=== PATIENT | female | born 1955 | race Caucasian/White ===

== ENCOUNTER 2016-06-24 19:43 | Emergency (ER) | payer MEDICARE ==
[2016-06-24 19:58] VITALS: BP 174/86
[2016-06-24] MEDS ORDERED: predniSONE 20 MG TABLET PO ONE (20:10)
[2016-06-24] MEDS ORDERED: predniSONE 20 MG TABLET ONE (20:11)
--- NOTE | 2016-06-24 20:21 | ERNOTE ---
Integumentary HPI - General Presenting Symptoms: rash Time Seen by Provider: 06/24/16 20:02 Source: patient Exam Limitations: no limitations - Immun/Allergies/Home Medications Immunizations: IMMUNIZATION HX Immunizations Up to Date Yes History of Influenza Vaccine No Hx Pneumococcal Vaccination No Allergies/Adverse Reactions: Allergies Allergy/AdvReac Type Severity Reaction Status Date / Time prednisone Allergy Mild Other Verified 06/24/16 19:58 Home Medications: HOME MEDICATIONS Ibuprofen [Motrin] 800 mg PO TID PRN 02/24/16 [Last Taken Unknown] Multivitamins [Multivitamin Jeff] 1 cap PO DAILY 02/24/16 [Last Taken Unknown] Naproxen Sodium [Aleve] 220 mg PO BID PRN 02/24/16 [Last Taken Unknown] Omeprazole 40 mg PO DAILY PRN 02/24/16 [Last Taken Unknown] hydrOXYzine HCL [Atarax] 25 mg PO Q6H PRN 02/24/16 [Last Taken Unknown] valACYclovir HCL [Valtrex] 500 mg PO DAILY PRN 02/24/16 [Last Taken Unknown] predniSONE [Prednisone] 2 tab PO DAILY #8 tab 06/24/16 [Last Taken Unknown] - History of Present Illness Narrative: Patient started with a rash yesterday. It is mainly in her face and chest. She gets poison diana frequently and her symptoms are similar. She denies any other symptoms. Earlier she went to a clinic in [place] but they would not give her prednisone as her face gets flushed when she takes it. She denies any other symptoms with the prednisone Date (Duration): 06/23/16 Location: Reports: facial Quality: Reports: itching Exposure: Reports: poison diana/oak Modifying Factors - (Improves): Reports: antihistamine, topical steroids Review of Systems - Review of Systems Constitutional: Absent: recent illness, fever ENT: Absent: ear pain, ear discharge, nose congestion, sore throat Respiratory: Absent: shortness of breath, cough Gastrointestinal/Abdominal: Absent: nausea, vomiting, abdominal pain Genitourinary: Present: no symptoms reported Musculoskeletal: Present: no symptoms reported Skin: Present: See HPI Neurological: Absent: weakness, numbness - Patient's Past Medical History Patient History - Medical: No pertinent hx Patient History - Cardiac/Respiratory: No pertinent hx Patient History - Cancer: No Hx of Cancer Patient History - Surgical Procedures: No surgical history Patient History - Other: None LMP (females 10-50): Menopausal - Social History Living Situations: home Psych History: No pertinent hx - Immunizations Immunizations Up to Date: Yes Hx Pneumococcal Vaccination: No History of Influenza Vaccine: No Physical Exam - Physical Exam General Appearance: Present: wd/wn, alert, no apparent distress, obese Ears, Nose, Throat: Present: normal pharynx Respiratory: Present: no respiratory distress, normal breath sounds, no accessory muscle use, lungs clear Cardiovascular/Chest: Present: regular rate, rhythm, no murmur Neurological Exam: Present: alert, oriented, normal mood/affect Skin Exam: Present: normal color, warm/dry, skin rash - lower face and neck: erythema, one area weeping ED Progress - Vital Signs Patient's Vital Signs:: I have reviewed the patient's vital signs. Vital Signs: Vital Signs 06/24/16 19:51 Temperature 37.1 C Pulse Rate 84 Respiratory 16 Rate Blood Pressure 174/86 O2 Sat by Pulse 98 Oximetry - Progress/Reassessment Chief Complaint: Rash Departure Clinical Impression: Poison diana - Departure Disposition: Home self-care Condition: Good Instructions: Poison Diana Dermatitis, [id number] Referrals: Joslyn Simon DO [Staff Physician] - Prescriptions: predniSONE [Prednisone] 2 tab PO DAILY #8 tab
== END 2016-06-24 20:23 | disposition home or self-care (01) ==
LOC: ER 19:43
DX: L23.7 Allergic contact dermatitis due to plants, except food (principal)